=== PATIENT | male | born 1960 | race Native Hawaiian/Other Pacific Islander ===

== ENCOUNTER 2018-09-29 21:34 | Emergency (ER) | payer BC, OTHER ==
--- NOTE | 2018-09-29 22:04 | ED Physician Chart ---
ED Chief Complaint/HPI - Patient Information Date Seen:: 09/29/18 Time Seen:: 22:01 Chief Complaint:: neck pain History of Present Illness:: 58 yr old male with popping sensation neck while sitting down at a desk today with pain neck no numbness or weakness does smoke heavily Allergies:: Allergies Allergy/AdvReac Type Severity Reaction Status Date / Time levofloxacin [From Levaquin] Allergy Verified 09/29/18 22:00 Vitals:: Vital Signs - 8 hr 09/29/18 21:35 Temp 98.7 F HR 87 RR 20 BP 134/77 O2 Sat % 95 ED Review of Systems - Review of Systems General/Constitutional: No fever, No chills, No weight loss, No weakness, No diaphoresis, No edema, No loss of appetite Skin: No skin lesions, No rash, No bruising Head: No headache, No light-headedness Eyes: No loss of vision, No pain, No diplopia ENT: No earache, No nasal drainage, No sore throat, No tinnitus Neck: No neck pain, No swelling, No thyromegaly, No stiffness, No mass noted Cardio Vascular: No chest pain, No palpitations, No PND, No orthopnea, No edema Pulmonary: No SOB, No cough, No sputum, No wheezing GI: No nausea, No vomiting, No diarrhea, No pain, No melena, No hematochezia, No constipation, No hematemesis G/U: No dysuria, No frequency, No hematuria Musculoskeletal: No bone or joint pain, No back pain, No muscle pain Endocrine: No polyuria, No polydipsia Psychiatric: No prior psych history, No depression, No anxiety, No suicidal ideation Hematopoietic: No bruising, No lymphadenopathy Allergic/Immuno: No urticaria, No angioedema Neurological: No syncope, No focal symptoms, No weakness, No paresthesia, No headache, No seizure, No dizziness, No confusion, No vertigo ED Past Medical History - Past Medical History Past Medical History: HTN ED Physical Exam - Physical Examination General/Constitutional: Awake, Well-developed, well-nourished, Alert, No distress, GCS 15, Non-toxic appearing, Ambulatory Head: Atraumatic Eyes: Lids, conjuctiva normal, PERRL, EOMI Skin: Nl inspection, No rash, No skin lesions, No ecchymosis, Well hydrated, No lymphadenopathy ENMT: External ears, nose nl, Nasal exam nl, Lips, teeth, gums nl Neck: Nontender, Full ROM w/o pain, No JVD, No nuchal rigidity, No bruit, No mass, No stridor Respiratory: Nl effort/Exclusion, Clear to Auscultation, No Wheeze/Rhonchi/Rales Cardio Vascular: RRR, No murmur, gallop, rubs, NL S1 S2 GI: No tenderness/rebounding/guarding, No organomegaly, No hernia, Normal BS's, Nondistended, No mass/bruits, No McBurney tenderness : No CVA tenderness Extremities: No tenderness or effusion, Full ROM, normal strength in all extremities, No edema, Normal digits & nails Neuro/Psych: Alert/oriented, DTR's symmetric, Normal sensory exam, Normal motor strength, Judgement/insight normal, Mood normal, Normal gait, No focal deficits Misc: Normal back, No paraspinal tenderness ED Assessment - Assessment General Assessment: neck pain ED Septic Shock - . Is Septic Shock (SBP<90, OR Lactate>4 mmol\L) present?: No - <6hrs of presentation: Vital Signs: Vital Signs - 8 hr 09/29/18 21:35 Temp 98.7 F HR 87 RR 20 BP 134/77 O2 Sat % 95 ED Reassessment (Disposition) - Reassessment Reassessment:: neck pain - Diagnosis Diagnosis:: neck pain - Patient Disposition Discharge/Transfer:: Home Condition at Disposition:: Stable
--- NOTE | 2018-09-30 08:38 | Diagnostic Imaging Report ---
Head CT without intravenous contrast Indication: pain Comparison: None Technique: Axial images were obtained from the vertex to the skull base without IV contrast. Coronal reconstructions were made. Total DLP: 760, CTDI42.5 Findings: Images of the brain obtained without contrast demonstrate no evidence of an acute hemorrhage. Faint bilateral basal ganglia calcifications are noted. The ventricles and basal cisterns are patent. No mass effect or midline shift. No evidence of a skull fracture or focal soft tissue swelling. The visualized paranasal sinuses demonstrate mucosal thickening. IMPRESSION: No acute intracranial abnormality.
--- NOTE | 2018-09-30 08:45 | Diagnostic Imaging Report ---
CT cervical spine without IV contrast HISTORY: Pain COMPARISON: None Technique: Axial images were obtained from the skull base to the upper thoracic spine without IV contrast. Multiplanar reconstructions were made. Total DLP: 422, CTDI21.5 FINDINGS: Images of the cervical spine obtained without contrast demonstrate reversal of the cervical lordosis. There is partially visualized mild vertebral body loss of height of the superior endplate of T1 which is age-indeterminate but may be. Small ossicle is also seen along the anterior/superior aspect measuring 4 mm. This may represent an incidental noted limbus vertebral body versus previous age-indeterminate avulsion fracture. No subluxation. Mild multilevel facet degenerative changes are noted. Multilevel mild disc space loss of height is noted. There is also moderate disc space loss at C5/C6 with 2-3 Posterior disc osteophyte complex noted. There is moderate spinal canal and moderate to severe bilateral neural foraminal narrowing at this level. Additional [id number] degenerative changes are seen throughout the remaining cervical spine. Nonspecific tonsillar calcifications are seen likely due to old inflammatory process. IMPRESSION: Mild vertebral body loss of height of the superior endplate of T1, age-indeterminate but probably chronic. There is also 4 mm ossicle seen along the anterior/superior aspect. This may resent a limbus vertebral body or possibly age-indeterminate avulsion fracture. Please correlate with clinical findings and old exams. If indicated MRI follow-up may be obtained for further assessment. Moderate degenerative changes greatest at C5/C6 with moderate spinal canal and moderate to severe bilateral neural foraminal narrowing at this level. Reversal of the cervical lordosis Which may be due to positioning versus muscle spasm.
== END 2018-09-29 23:53 | disposition home or self-care (01) ==
LOC: ER 21:34
DX: M54.2 Cervicalgia (principal); I10 Essential (primary) hypertension; Z88.1 Allergy status to other antibiotic agents
CPT/HCPCS: 70450-TC; 72125-TC

== ENCOUNTER 2018-10-13 22:07 | Emergency (ER) | payer BC, OTHER ==
--- NOTE | 2018-10-13 22:54 | ED Physician Chart ---
ED Chief Complaint/HPI - Patient Information Date Seen:: 10/13/18 Time Seen:: 22:49 Chief Complaint:: abd pain History of Present Illness:: 55 yr oldmale with upper abd pain since yest rlq no nvdor constipation hurts when he bends down to touch his shoes no hx of abd surgeries Allergies:: Allergies Allergy/AdvReac Type Severity Reaction Status Date / Time levofloxacin [From Levaquin] Allergy Verified 09/29/18 22:00 Vitals:: Vital Signs - 8 hr 10/13/18 22:10 Temp 97.8 F HR 87 RR 18 BP 124/69 O2 Sat % 97 ED Review of Systems - Review of Systems General/Constitutional: No fever Skin: No skin lesions Head: No headache Eyes: No loss of vision ENT: No earache Neck: No neck pain Cardio Vascular: No chest pain GI: No nausea, No vomiting G/U: No dysuria Musculoskeletal: No bone or joint pain Endocrine: No polyuria Psychiatric: No prior psych history, No anxiety Hematopoietic: No bruising Allergic/Immuno: No urticaria Neurological: No syncope ED Past Medical History - Past Medical History Past Medical History: HTN ED Physical Exam - Physical Examination General/Constitutional: Awake, Well-developed, well-nourished, Alert, No distress, GCS 15, Non-toxic appearing, Ambulatory Head: Atraumatic Eyes: Lids, conjuctiva normal, PERRL, EOMI Skin: Nl inspection, No rash, No skin lesions, No ecchymosis, Well hydrated, No lymphadenopathy ENMT: External ears, nose nl, Nasal exam nl, Lips, teeth, gums nl Neck: Nontender, Full ROM w/o pain, No JVD, No nuchal rigidity, No bruit, No mass, No stridor Respiratory: Nl effort/Exclusion, Clear to Auscultation, No Wheeze/Rhonchi/Rales Cardio Vascular: RRR, No murmur, gallop, rubs, NL S1 S2 GI: No organomegaly, No hernia, Normal BS's, Nondistended, No mass/bruits, No McBurney tenderness Other GI comments:: mild rlq tenderness : No CVA tenderness Extremities: No tenderness or effusion, Full ROM, normal strength in all extremities, No edema, Normal digits & nails Neuro/Psych: Alert/oriented, DTR's symmetric, Normal sensory exam, Normal motor strength, Judgement/insight normal, Mood normal, Normal gait, No focal deficits Misc: Normal back, No paraspinal tenderness ED Assessment - Assessment General Assessment: abd pain ED Septic Shock - . Is Septic Shock (SBP<90, OR Lactate>4 mmol\L) present?: No - <6hrs of presentation: Vital Signs: Vital Signs - 8 hr 10/13/18 22:10 Temp 97.8 F HR 87 RR 18 BP 124/69 O2 Sat % 97 ED Reassessment (Disposition) - Reassessment Reassessment:: abd pain - Diagnosis Diagnosis:: abd pain - Patient Disposition Discharge/Transfer:: Home Condition at Disposition:: Stable
[2018-10-13 22:56] LABS: URINE SOURCE CLEAN C
[2018-10-13 23:06] LABS: % BASOPHILS 1.3 % (0.0-2.0); % EOSINOPHILS 3.2 % (0.0-5.0); % LYMPHOCYTES 31.3 % (20.0-50.0); % MONOCYTES 5.6 % (2.0-10.0); % NEUTROPHILS 58.6 % (40.0-80.0); BASOPHILE ABSOLUTE 0.1 Th/cumm (0-0.2); EOSINOPHILE ABSOLUTE 0.2 Th/cmm (0.1-0.4); HEMOGLOBIN 15.2 gm/dL (12-16); LYMPHOCYTE ABSOLUTE 1.9 Th/cmm (1.5-3.0); MEAN CELL VOLUME 83.3 fl (80-99); MEAN CORPUSCULAR HEMOGLOBIN 28.1 pg (26.0-30.0); MEAN CORPUSCULAR HGB CONC 33.7 pg (28.0-36.0); MONOCYTE ABSOLUTE 0.3 Th/cmm (0.3-1.0); NEUTROPHILE ABSOLUTE 3.6 Th/cmm (1.8-8.0); PLATELET COUNT 202 Th/cmm (150-400); WHITE BLOOD COUNT 6.1 Th/cmm (4.8-10.8)
[2018-10-13 23:17] LABS: URINE BILIRUBIN NEGATIVE (NEGATIVE); URINE BLOOD SMALL (NEGATIVE); URINE GLUCOSE (UA) 100 mg/dL (NEGATIVE); URINE KETONE NEGATIVE (NEGATIVE); URINE LEUKOCYTE ESTERASE NEGATIVE (NEGATIVE); URINE MICROSCOPIC INDICATED? YES; URINE NITRATE NEGATIVE (NEGATIVE); URINE PH 5.5 (4.6 - 8.0); URINE PROTEIN NEGATIVE (NEGATIVE); URINE UROBILINOGEN 0.2 E.U./dL (0.2 - 1.0)
[2018-10-13 23:22] LABS: ALB/GLOB RATIO 1.5 (1.0-1.8); ALKALINE PHOSPHATASE 56 U/L (34-104); AMYLASE SERUM 42 U/L (29-103); ANION GAP 12.5 (7.0-16.0); BILIRUBIN,TOTAL 0.3 mg/dL (0.3-1.0); BUN - UREA NITROGEN 18 mg/dL (7-25); CALCIUM SERUM 9.1 mg/dL (8.6-10.3); CHLORIDE 104 mEq/L (98-107); CREATININE - SERUM 0.9 mg/dL (0.7-1.3); GFR AFRICAN-AMERICAN > 60.0 ml/min (>90); GFR NON AFRICAN-AMERICAN > 60.0 ml/min; GLUCOSE 132 mg/dL (70-105); LIPASE 21 U/L (11-82); POTASSIUM SERUM 3.5 mEq/L (3.5-5.1); SGOT 18 U/L (13-39); SGPT/ALT 34 U/L (7-52); SODIUM SERUM 139 mEq/L (136-145); TOTAL PROTEIN,SERUM 6.7 gm/dL (6.0-8.3)
[2018-10-13] MEDS ORDERED: IOHEXOL 300mgI/mL 100 ML VIAL ONE (23:26)
[2018-10-13 23:31] LABS: URINE CLARITY SLIGHT HAZY (CLEAR); URINE COLOR YELLOW
[2018-10-13 23:43] LABS: URINE BACTERIA NONE SEEN /hpf (NONE SEEN); URINE EPITHELIAL CELLS NONE SEEN /lpf (FEW); URINE RBC 0-2 /hpf (0-5); URINE WBC 0-2 /hpf (0-5)
--- NOTE | 2018-10-14 09:21 | Diagnostic Imaging Report ---
CT scan of the abdomen and pelvis with intravenous contrast History: Pain Total DLP equals 571 CTDI equals 11.7 Following administration of intravenous contrast, axial sections were obtained from the xiphoid process down to the pubic symphysis. Exam of the liver demonstrates a normal size and contour. There is a decrease in overall hepatic parenchymal density. The findings are consistent with fatty infiltration and should be correlated with liver function tests. No focal lesions. The spleen appears normal. No abnormalities are seen in the region of the pancreas. The kidneys appear normal bilaterally. No focal lesions or hydronephrosis. The exam of the pelvis demonstrates preservation of normal fat planes. No abnormal soft tissue masses or abnormal fluid collections. Impression: 1. No acute abnormalities 2. Findings consistent with hepatic fatty infiltration. The changes should be correlated with liver function tests.
== END 2018-10-14 00:47 | disposition home or self-care (01) ==
LOC: ER 22:07
DX: R10.31 Right lower quadrant pain (principal); I10 Essential (primary) hypertension; Z88.1 Allergy status to other antibiotic agents
CPT/HCPCS: 36415-UA; 80053-TC; 81001-TC; 82150-TC; 83690-TC; 85025-TC; Q9967